=== PATIENT | male | born 1995 | race Caucasian/White ===

== ENCOUNTER 2016-12-28 20:24 | Emergency (ER) | payer OTHER | END 2016-12-28 22:22 | disposition other institution (70) | LOC: ED 20:24 | DX: Z02.89 Encounter for other administrative examinations (principal) ==

== ENCOUNTER 2016-12-28 20:24 | Emergency (ER) | payer OTHER ==
[2016-12-28 22:22] VITALS: BP 135/78
== END 2016-12-28 22:22 | disposition other institution (70) ==
LOC: ED 20:24
DX: S61.412A Laceration without foreign body of left hand, initial encounter (principal); W45.8XXA Other foreign body or object entering through skin, initial encounter; Y93.89 Activity, other specified; Y99.8 Other external cause status; Y92.89 Other specified places as the place of occurrence of the external cause
CPT/HCPCS: A4570; J7030